=== PATIENT | female | born 1985 | race Caucasian/White ===

== ENCOUNTER 2021-08-29 12:45 | Emergency (ER) | payer SELFPAY ==
[~2021-08-29] VITALS: Ht 167.6 cm; Wt 140.6 kg
[~2021-08-29 12:45] MED LIST: MACROBID 100 M100 M1 PO
== END 2021-08-29 18:23 | disposition home or self-care (01) ==
LOC: ER1 12:45
DX: U07.1 COVID-19 (principal); Z23 Encounter for immunization; I10 Essential (primary) hypertension; J45.909 Unspecified asthma, uncomplicated; Z88.0 Allergy status to penicillin
CPT/HCPCS: 71045; 99285; M0243; U0002